=== PATIENT | female | born 1980 | race Two or more races ===

== ENCOUNTER 2020-12-08 19:48 | Emergency (ER) | payer OTHER ==
[2020-12-08 20:09] VITALS: BP 130/80
[2020-12-08] MEDS ORDERED: PENICILLIN VK 250 MG TABLET PO STA (21:21)
--- NOTE | 2020-12-08 21:24 | ED Physician Documentation ---
History of Present Illness - Stated complaint Stated Complaint: RT SIDE TOOTH PX - Chief complaint Chief Complaint: Heent - History obtained from History obtained from: Patient - History of Present Illness Timing: How many days ago (4) Pain level max: 8 Pain level now: 6 - Additonal information Additional information: 40-year-old female with right upper dental pain for the past 4 days. She is visiting from the [facility]. She called the [facility] nurse advice line who directed her to the emergency department to have her tooth evaluated. No facial swelling. No fevers. No chills. Worse with eating and drinking. Nothing makes it better. Took Aleve without relief. 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 seasonal allergies - Past Surgical History Past Surgical History: Yes General: Cholecystectomy Ortho: Shoulder arthroplasty, Other - Present Medications Home Medications: Ambulatory Orders Medication Instructions Recorded Confirmed Cetirizine HCl/Pseudoephedrine 1 tab PO DAILY 12/08/20 12/08/20 [Zyrtec-D Tablet] Fluticasone [Flonase] 2 sprays JULITO DAILY 12/08/20 12/08/20 HYDROcod/ACETAM 5/325 [Edgewood 5/325] 1 - 2 ea PO Q6H PRN #14 tablet 12/08/20 Penicillin V Potassium 500 mg PO Q6HR #40 tablet 12/08/20 - Allergies Allergies/Adverse Reactions: Allergies Allergy/AdvReac Type Severity Reaction Status Date / Time clotrimazole [From Mycelex] Allergy Rash Verified 12/08/20 20:07 - Social History Does the pt smoke?: No Smoking Status: Never smoker Does the pt drink ETOH?: Yes Does the pt have substance abuse?: No - Immunizations Immunizations are current?: Yes PD ED PE NORMAL - Vitals Vital signs reviewed: Yes - General General: Alert and oriented X 3, No acute distress - HEENT HEENT: Other (R upper premolar with TTP, no gingival swelling. ) - Neck Neck: Supple, no meningeal sign - Cardiac Cardiac: RRR - Respiratory Respiratory: No respiratory distress, Clear bilaterally - Derm Derm: Warm and dry - Neuro Neuro: Alert and oriented X 3 - Psych Psych: Normal mood, Normal affect Results - Vitals Vitals: Vital Signs - 24 hr 12/08/20 12/08/20 20:07 21:11 Temperature 36.5 C 36.5 C Heart Rate 63 63 Respiratory 16 16 Rate Blood Pressure 130/80 130/80 O2 Saturation 98 98 Oxygen O2 Source Room air PD MEDICAL DECISION MAKING - ED course Complexity details: considered differential, d/w patient ED course: No facial cellulitis. No swelling. No drainable abscess. Normal phonation. No trismus. Will place on antibiotics for home and have her follow-up with her dentist tomorrow. I am prescribing a short course of short-acting opioid pain medication for this patient. 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 I have discussed that the opioids are for short term therapy only, and will not be refilled from the ED. patient counseled regarding signs and symptoms for which I believe and urgent re-evaluation would be necess machelle. Patient with good understanding of and agreement to plan and is comfortable going home at this time This document was made in part using voice recognition software. While efforts are made to proofread this document, sound alike and grammatical errors may occur. Departure - Departure Disposition: 01 Home, Self Care Clinical Impression: Pain due to dental caries Condition: Good Instructions: ED Tooth Pain Follow-Up: Provider,Other [Primary Care Provider] - Prescriptions: Penicillin V Potassium 500 mg PO Q6HR #40 tablet HYDROcod/ACETAM 5/325 [Edgewood 5/325] 1 - 2 ea PO Q6H PRN #14 tablet PRN Reason: Pain Comments: Take all antibiotics until gone. Please follow-up with a dentist for further care. Return if you worsen. [facility] [place] I am prescribing a short course of narcotic pain medication for you. These are potentially dangerous and addictive medications that should be used carefully. These medications may constipate you. Take an [id number] stool softener (docusate) twice daily with plenty of water while taking these medications. If you go 24 hours without a bowel movement, take [id number] miralax, per package instructions. Do not drink or drive while taking these medications. If you received narcotic or sedating medications while in the emergency department, do not drive for 24 hours. Store this medication in a safe, secure place and out of reach of children. It is a violation of federal law to give or sell this medication to another person or to use in a manner other than prescribed. The ED will not refill narcotic prescriptions, including prescriptions lost or stolen. To dispose of unwanted medications: 1. [facility] at [address] in [place] has a medication drop box. They accept prescription medications (in pill form) Tuesday through Tuesday 9:00 a.m. to 5:00 p.m. 2. [facility] accepts prescription medications (in pill form only) for disposal year round. Call for more information. 3. Contact the [facility] for the next [facility] sponsored prescription drug collection event. , [phone], or [phone];
== END 2020-12-08 21:30 | disposition home or self-care (01) ==
LOC: ED 19:48
DX: K02.9 Dental caries, unspecified (principal)
CPT/HCPCS: 99282; 99283; A9270